=== PATIENT | female | born 1990 | race Caucasian/White ===

== ENCOUNTER → 2016-08-18 | Day surgery (SDC) | payer OTHER ==
[~2016-08-18] MED LIST: BACITRACIN30 GM TOP; BIRTH CONTROL PILLS; IBUPROFEN PO; MULTIVITAMINS1 EAC3; PERCOCET5/325 PO; PHENTERMINE H37.5 M1 PO; PROTONIX PO; SINGULAIR PO; TRAMADOL HCL50 M2 PO; ZOLOFT50 MG PO
--- NOTE | ~2016-08-18 | OR ---
Unit #: [id number] #: [id number] Patient: RAYMUNDO RAGLAND [id number] [address] [place], [place] [address] [id number] O MR#: [id number] NAME: RAYMUNDO RAGLAND ROOM: Date of Procedure: 08/18/2016 Admission Date: 08/18/2016 Surgeon: Moisés Posadas M.D. : 1990 Attending Physician: Moisés Posadas M.D. Primary Care Physician: David Aviles M.D. OPERATIVE REPORT PREOPERATIVE DIAGNOSES Radiculopathy, back pain and herniated nucleus pulposus. POSTOPERATIVE DIAGNOSES Radiculopathy, back pain and herniated nucleus pulposus. PROCEDURE PERFORMED Transforaminal epidural steroid injection with intravenous sedation under fluoroscopic guidance for needle localization. HISTORY The patient is a 26-year-old female with a five year history of significant left lower extremity pain felt due to a left L4-L5 disk herniation with L5 nerve root compression. She failed to settle with physical therapy, chiropractic and medical management. She had trial of translaminar epidurals, which gave her about a week of improvement, nothing maintained past that. Thus, we will give her a trial of transforaminal injections, if not, she may be a surgical candidate. Plan is to trial at the L4-L5 level, assess this and assess pathology at L5-S1 with S1 nerve root contact. If this does not settle her problem, we will look towards diagnostic and therapeutic transforaminal at that level. DESCRIPTION OF PROCEDURE The patient was placed in a prone position. Standard monitors were applied. Then, 2 mg of Versed were given for sedation and anxiolysis, which were adequate. Vital signs remained stable. Sterile prep and drape then of the lumbar area was performed. The skin to the left of midline, lateral to the L4-5 interspace was localized with 1% lidocaine. A long 22-gauge Quincke point spinal needle was then advanced with biplanar fluoroscopic guidance to bring the needle tip to the edge of the left L4-L5 neural foramina. The patient had paresthesia, which replicated her pain. This was followed by a dose of 80 mg of Depo-Medrol and 1 mL of 0.25% bupivacaine after this positioning had been confirmed with biplanar fluoroscopy and radiographic contrast. The needle was flushed and removed. The patient tolerated the procedure well and was discharged to the recovery room in stable condition. Dictated by... Moisés Posadas M.D. [facility] Unit #: [id number] #: [id number] Patient: RAYMUNDO RAGLAND TD: 08/18/2016 11:06 JOB #: [id number] OPERATIVE REPORT Page 1 of 1 X Moisés Posadas MD X PROCEDURE OPERATIVE NOTE
== END | disposition home or self-care (01) ==
LOC: CCSC 08:40
DX: M51.16 Intervertebral disc disorders with radiculopathy, lumbar region (principal)
CPT/HCPCS: J1040; J2250

== ENCOUNTER 2016-08-22 17:07 | Emergency (ER) | payer OTHER ==
--- NOTE | ~2016-08-22 | CT71 ---
[facility] A Service of [facility] RADIOLOGY TEXT RESULTS PATIENT: RAYMUNDO RAGLAND LOCATION: [facility] : [birth year] UNIT #: [id number] AGE: [address]: Abebe Aviles MD SEX: F ORDER DR: [id number] [facility]. [place], [place] [address] [id number] MR#: [id number] Acc #: [id number] NAME: RAYMUNDO RAGLAND. : 1990 SEX: F STUDY DATE/TIME: 08/22/2016 19:02 UNIT: [facility] ROOM: STUDY DESCRIPTION: CT Head Wo Contrast Attending Physician: Abebe Aviles M.D. Ordering Physician: Abebe Aviles M.D. Primary Care Physician: David Aviles M.D. MEDICAL IMAGING REPORT This report is preliminary unless electronic signature is present EXAM CT head, noncontrast, 08/22/2016 HISTORY 26-year-old female in the ED complaining of a persistent headache for the last 4 days. Reportedly following an epidural procedure. TECHNIQUE CT examination of the head was performed without IV contrast. This CT exam was performed with one or more of the following radiation dose reduction techniques: automatic exposure control, adjustment of mA and/or kV according to patient size, and iterative reconstruction. FINDINGS The examination is negative. No evidence of intracranial hemorrhage, mass, mass effect, cerebral edema, hydrocephalus or additional abnormality. IMPRESSION Negative head CT examination. Dictated by... Brian Pacheco M.D. THIS IS AN ELECTRONICALLY VERIFIED REPORT Brian Pacheco M.D. at 08/23/2016 10:15 AM EMANUEL/belia TD: 08/23/2016 00:31 JOB #: [id number] [facility] A Service of [facility] RADIOLOGY TEXT RESULTS PATIENT: RAYMUNDO RAGLAND LOCATION: [facility] : [birth year] UNIT #: [id number] AGE: [address]: Abebe Aviles MD SEX: F ORDER DR: MEDICAL IMAGING REPORT Page 1 of 1 COPY
[~2016-08-22 17:07] MED LIST changes: -IBUPROFEN PO; -MULTIVITAMINS1 EAC3; -PERCOCET5/325 PO; -PHENTERMINE H37.5 M1 PO; -PROTONIX PO; -SINGULAIR PO; -TRAMADOL HCL50 M2 PO; -ZOLOFT50 MG PO
[2016-08-23] MEDS ORDERED: IBUPROFEN PO (07:30)
[2016-08-23] MEDS ORDERED: TRAMADOL HCL50 M2 PO (07:36)
[2016-08-23] MEDS ORDERED: MULTIVITAMINS1 EAC3 (07:36)
[2016-08-23] MEDS ORDERED: PERCOCET5/325 PO (07:36)
[2016-08-23] MEDS ORDERED: PHENTERMINE H37.5 M1 PO (07:36)
[2016-08-23] MEDS ORDERED: ZOLOFT50 MG PO (07:36)
[2016-08-23] MEDS ORDERED: PROTONIX PO (07:36)
[2016-08-23] MEDS ORDERED: SINGULAIR PO (07:37)
== END 2016-08-22 19:35 | disposition home or self-care (01) ==
LOC: CED 17:07
DX: R51 Headache (principal); F41.9 Anxiety disorder, unspecified; Z88.2 Allergy status to sulfonamides
CPT/HCPCS: 70450; 84703; 96361; 96374; 99284; J1885

== ENCOUNTER → 2016-08-23 | Day surgery (SDC) | payer OTHER ==
[~2016-08-23] MED LIST changes: +IBUPROFEN PO; +MULTIVITAMINS1 EAC3; +PERCOCET5/325 PO; +PHENTERMINE H37.5 M1 PO; +PROTONIX PO; +SINGULAIR PO; +TRAMADOL HCL50 M2 PO; +ZOLOFT50 MG PO
--- NOTE | ~2016-08-23 | OR ---
Unit #: [id number] #: [id number] Patient: RAYMUNDO RAGLAND [id number] [address] [place], [place] [address] [id number] O MR#: [id number] NAME: RAYMUNDO RAGLAND ROOM: Date of Procedure: 08/23/2016 Admission Date: 08/23/2016 Surgeon: Moisés Posadas M.D. : 1990 Attending Physician: Moisés Posadas M.D. Primary Care Physician: David Aviles M.D. OPERATIVE REPORT PREOPERATIVE DIAGNOSES Postdural puncture headache, spinal headache. POSTOPERATIVE DIAGNOSES Postdural puncture headache, spinal headache. PROCEDURE PERFORMED Epidural blood patch. INDICATIONS FOR PROCEDURE The patient is a 26-year-old female, status post transforaminal injection 5 days ago. She developed headache later that day and has become significant over the weekend and is not settle with conservative measures . She has been unable to work Monday or yesterday due to the intensity of headache. There was no obvious complications at the time of the transforaminal epidurally, impression though of a spinal headache, the plan is for blood patch. Risks and benefits of all have been reviewed. DESCRIPTION OF PROCEDURE The patient was placed in a seated position. Standard monitors were applied. 2 mg of Versed were given for sedation and anxiolysis, which were adequate. Vital signs remained stable. Sterile prep and drape then of the lumbar area was performed. The skin then at the L5 level was localized with 1% lidocaine. An 18-gauge Hustead needle was then advanced via loss of resistance technique and fluoroscopic guidance in toward the epidural space. After confirming proper positioning with fluoroscopy and radiographic contrast, the blood was then drawn from the patient's left hand after a sterile prep and drape. 20 mL of autologous blood was drawn in a sterile manner. This blood was then injected via the epidural needle into the epidural space. Approximately 15 mL were placed The procedure was finished at that point. The patient was discharged to the recovery room in stable condition. Dictated by... Karen Cat/rianna TD: 08/23/2016 22:46 Unit #: [id number] #: [id number] Patient: DEBORAH RAGLANDRED Diandra JOB #: [id number] OPERATIVE REPORT Page 1 of 1 X Moisés Posadas MD X PROCEDURE OPERATIVE NOTE
== END | disposition home or self-care (01) ==
LOC: CCSC 07:15
DX: G97.1 Other reaction to spinal and lumbar puncture (principal); M51.26 Other intervertebral disc displacement, lumbar region; K21.9 Gastro-esophageal reflux disease without esophagitis
CPT/HCPCS: J2250